=== PATIENT | male | born 1985 | race Caucasian/White ===

== ENCOUNTER 2024-05-01 07:56 | Emergency (ER) | payer BC ==
[~2024-05-01] VITALS: Ht 170.2 cm; Wt 65.9 kg
[2024-05-01 08:23] LABS: BASO # 0.04 K/mm3 (0.02-0.10); EOS # 0.19 K/mm3 (0.04-0.40); EOS % 2.6 % (0.0-4.0); HEMOGLOBIN 15.3 g/dL (13.5-18.0); LYMPH# 1.47 K/mm3 (1.50-4.00); MEAN CELL VOLUME 89 fl (78-100); MEAN CORPUSCULAR HEMOGLOBIN 30 pg (27-31); MEAN CORPUSCULAR HGB CONC 34 g/dL (33-37); MONO # 0.49 K/mm3 (0.20-0.80); NEU # 4.98 K/mm3 (1.40-6.50); PLATELET COUNT 302 K/mm3 (130-400); RED BLOOD COUNT 5.04 M/mm3 (4.20-5.60); RED CELL DISTRIBUTION WIDTH 12.2 % (11.5-14.5); WHITE BLOOD COUNT 7.2 K/mm3 (4.8-10.8)
[2024-05-01 08:31] LABS: ALBUMIN 4.3 g/dL (3.5-5.0)
[2024-05-01 08:33] LABS: CALCIUM 10.1 mg/dL (8.3-10.5)
[2024-05-01 08:36] LABS: TOTAL BILIRUBIN 0.5 mg/dL (0.2-1.2)
[2024-05-01] MEDS ORDERED: Mag/Al Hydrox/Simeth Susp 30 ML CUP PO ONE (09:00)
[2024-05-01 12:09] VITALS: BP 130/85
== END 2024-05-01 11:58 | disposition home or self-care (01) ==
LOC: ED 07:56
PROVIDERS: Family Medicine
DX: R07.89 Other chest pain (principal); R42 Dizziness and giddiness; Z87.891 Personal history of nicotine dependence
CPT/HCPCS: J7120